=== PATIENT | female | born 1970 | race American Indian/Alaskan Native ===

== ENCOUNTER 2019-12-01 21:08 | Observation (INO) | payer MEDICAID ==
--- NOTE | 2019-12-01 21:30 | Emergency Department Report ---
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 EMS reports that daughter called due to weakness and patient was subsequently transferred to the ED patient was directed to CT scan and was evaluated by neurology (see note) and deemed not a TPA candidate Upon return for CT evaluated patient and she has slurred speech and appears drowsy. She does take oxycodone 10 mg 2 or 3 times a day for chronic pain and is currently in pain management. He has been compliant with her insulin and blood pressure medication. He states [facility] getting [facility] from the previous when she passed out. She all she remembered is compl ementing someone on being pretty then she woke up on the ground with the Washerette Machine Operator praying over her. Patient denies any preceding symptoms. He has been having intermittent headache for the last 3 weeks and was seen by her primary care doctor who increased her losartan from 50-100 and added hydrochlorothiazide 25 mg (combination medication) for better blood pressure control. For the last 3 days patient has noticed that she has been intermittently dropping things with her left hand and having some intermittent left leg weakness. Collateral information obtained from patient's older daughter who was informed by the younger daughter was actually at the scene with the patient. - Related Data Allergies/Adverse Reactions: Allergies Allergy/AdvReac Type Severity Reaction Status Date / Time No Known Allergies Allergy Verified 12/01/19 23:26 ED Review of Systems ROS: Stated complaint: STROKE Other details as noted in HPI Comment: All other systems reviewed and negative ED Neuro Physical Exam - General Suspected Stroke: Yes - NIHSS Assessment Interval: Baseline 1a. Level of Consciousness: alert/keenly responsive 1b. LOC Questions: answers both correctly 1c. LOC Commands: performs tasks correctly 2. Best Gaze: normal 3. Visual: no visual loss 4. Facial Palsy: normal symmetrical movement 5b. Motor Arm Right: no drift 5a. Motor Arm Left: no drift 6a. Motor Leg Left: no drift 6b. Motor Leg Right: no drift 7. Limb Ataxia: absent 8. Sensory: normal 9. Best Language: no aphasia 10. Dysarthria: mild/moderate dysarthria 11. Extinction/Inattention: no abnormality Total Score: 1 Stroke Severity: Minor Stroke - Other Other exam information: General: No acute distress Head: Atraumatic Eyes: normal appearance ENT: Moist mucous membranes Neck: Normal appearance, no midline tenderness Chest: Clear to auscultation bilaterally CV: Regular rate and rhythm Abdomen: Soft, normal bowel sounds, nontender, nondistended, no rebound or guarding Back: Normal inspection Extremity: Normal inspection, full range of motion Neuro: Alert O x 3, no facial asymmetry, speech clear, no gross motor deficit, left arm and leg feel "rougher" than the right. See NIH stroke scale Psych: Appropriate behavior Skin: No rash ED Course Vital Signs 12/01/19 12/01/19 12/01/19 21:10 21:40 21:46 Temperature 98.6 F Pulse Rate 94 H 101 H 98 H Respiratory 18 15 9 L Rate Blood Pressure 153/92 148/102 O2 Sat by Pulse 98 100 Oximetry 12/01/19 12/01/19 12/01/19 22:00 22:16 22:30 Temperature Pulse Rate 94 H 92 H 93 H Respiratory 19 11 L 16 Rate Blood Pressure 153/92 128/90 128/88 O2 Sat by Pulse 100 95 Oximetry 12/01/19 12/01/19 12/01/19 22:46 22:50 23:05 Temperature Pulse Rate 85 Respiratory 9 L 18 Rate Blood Pressure 137/86 128/90 O2 Sat by Pulse 98 100 98 Oximetry 12/01/19 12/01/19 23:15 23:46 Temperature Pulse Rate 93 H Respiratory 10 L 18 Rate Blood Pressure 145/91 O2 Sat by Pulse 97 Oximetry - Reevaluation(s) Reevaluation #1: 12/01/19 22:49 Patient requesting pain medicine for chronic pain. She is already slightly drowsy with mild slurring of her words and I suspect that she recently took oxycodone. Toradol ordered - Lab Data Result diagrams: 12/01/19 21:30 12/01/19 21:30 Lab Results 12/01/19 12/01/19 12/01/19 Range/Units 21:30 21:30 21:30 WBC 7.8 (4.5-11.0) K/mm3 RBC 4.90 (3.65-5.03) M/mm3 Hgb 10.9 (10.1-14.3) gm/dl Hct 36.0 (30.3-42.9) % MCV 73 L (79-97) fl MCH 22 L (28-32) pg MCHC 31 (30-34) % RDW 13.2 (13.2-15.2) % Plt Count 295 (140-440) K/mm3 Lymph % (Auto) 48.6 H (13.4-35.0) % [place] % (Auto) 6.9 (0.0-7.3) % Eos % (Auto) 3.2 (0.0-4.3) % Baso % (Auto) 1.0 (0.0-1.8) % Lymph # (Auto) 3.8 (1.2-5.4) K/mm3 [place] # (Auto) 0.5 (0.0-0.8) K/mm3 Eos # (Auto) 0.3 (0.0-0.4) K/mm3 Baso # (Auto) 0.1 (0.0-0.1) K/mm3 Seg Neutrophils % 40.3 (40.0-70.0) % Seg Neutrophils # 3.1 (1.8-7.7) K/mm3 PT 12.5 (12.2-14.9) Sec. INR 0.92 (0.87-1.13) APTT 25.0 (24.2-36.6) Sec. Thrombin Time (15.1-19.6) Sec. VBG pH (7.320-7.420) Sodium 131 L (137-145) mmol/L Potassium 4.4 (3.6-5.0) mmol/L Chloride 90.8 L (98-107) mmol/L Carbon Dioxide 29 (22-30) mmol/L Anion Gap 16 mmol/L BUN 21 H (7-17) mg/dL Creatinine 1.1 (0.6-1.2) mg/dL Estimated GFR > 60 ml/min BUN/Creatinine Ratio 19 % Glucose 423 H (65-100) mg/dL POC Glucose (70-105) Calcium 9.4 (8.4-10.2) mg/dL Magnesium (1.7-2.3) mg/dL Troponin T < 0.010 (0.00-0.029) ng/mL HCG, Qual (Negative) Salicylates (2.8-20.0) mg/dL Acetaminophen (10.0-30.0) ug/mL Plasma/Serum Alcohol (0-0.07) % 12/01/19 12/01/19 12/01/19 Range/Units 21:30 21:46 21:46 WBC (4.5-11.0) K/mm3 RBC (3.65-5.03) M/mm3 Hgb (10.1-14.3) gm/dl Hct (30.3-42.9) % MCV (79-97) fl MCH (28-32) pg MCHC (30-34) % RDW (13.2-15.2) % Plt Count (140-440) K/mm3 Lymph % (Auto) (13.4-35.0) % [place] % (Auto) (0.0-7.3) % Eos % (Auto) (0.0-4.3) % Baso % (Auto) (0.0-1.8) % Lymph # (Auto) (1.2-5.4) K/mm3 [place] # (Auto) (0.0-0.8) K/mm3 Eos # (Auto) (0.0-0.4) K/mm3 Baso # (Auto) (0.0-0.1) K/mm3 Seg Neutrophils % (40.0-70.0) % Seg Neutrophils # (1.8-7.7) K/mm3 PT (12.2-14.9) Sec. INR (0.87-1.13) APTT (24.2-36.6) Sec. Thrombin Time 15.4 (15.1-19.6) Sec. VBG pH (7.320-7.420) Sodium (137-145) mmol/L Potassium (3.6-5.0) mmol/L Chloride (98-107) mmol/L Carbon Dioxide (22-30) mmol/L Anion Gap mmol/L BUN (7-17) mg/dL Creatinine (0.6-1.2) mg/dL Estimated GFR ml/min BUN/Creatinine Ratio % Glucose (65-100) mg/dL POC Glucose (70-105) Calcium (8.4-10.2) mg/dL Magnesium 1.90 (1.7-2.3) mg/dL Troponin T (0.00-0.029) ng/mL HCG, Qual Negative (Negative) Salicylates (2.8-20.0) mg/dL Acetaminophen (10.0-30.0) ug/mL Plasma/Serum Alcohol (0-0.07) % 12/01/19 12/01/19 12/01/19 Range/Units 21:46 21:46 21:46 WBC (4.5-11.0) K/mm3 RBC (3.65-5.03) M/mm3 Hgb (10.1-14.3) gm/dl Hct (30.3-42.9) % MCV (79-97) fl MCH (28-32) pg MCHC (30-34) % RDW (13.2-15.2) % Plt Count (140-440) K/mm3 Lymph % (Auto) (13.4-35.0) % [place] % (Auto) (0.0-7.3) % Eos % (Auto) (0.0-4.3) % Baso % (Auto) (0.0-1.8) % Lymph # (Auto) (1.2-5.4) K/mm3 [place] # (Auto) (0.0-0.8) K/mm3 Eos # (Auto) (0.0-0.4) K/mm3 Baso # (Auto) (0.0-0.1) K/mm3 Seg Neutrophils % (40.0-70.0) % Seg Neutrophils # (1.8-7.7) K/mm3 PT (12.2-14.9) Sec. INR (0.87-1.13) APTT (24.2-36.6) Sec. Thrombin Time (15.1-19.6) Sec. VBG pH (7.320-7.420) Sodium (137-145) mmol/L Potassium (3.6-5.0) mmol/L Chloride (98-107) mmol/L Carbon Dioxide (22-30) mmol/L Anion Gap mmol/L BUN (7-17) mg/dL Creatinine (0.6-1.2) mg/dL Estimated GFR ml/min BUN/Creatinine Ratio % Glucose (65-100) mg/dL POC Glucose (70-105) Calcium (8.4-10.2) mg/dL Magnesium (1.7-2.3) mg/dL Troponin T (0.00-0.029) ng/mL HCG, Qual (Negative) Salicylates < 0.3 L (2.8-20.0) mg/dL Acetaminophen 5.0 L (10.0-30.0) ug/mL Plasma/Serum Alcohol < 0.01 (0-0.07) % 12/01/19 12/01/19 Range/Units 21:48 21:54 WBC (4.5-11.0) K/mm3 RBC (3.65-5.03) M/mm3 Hgb (10.1-14.3) gm/dl Hct (30.3-42.9) % MCV (79-97) fl MCH (28-32) pg MCHC (30-34) % RDW (13.2-15.2) % Plt Count (140-440) K/mm3 Lymph % (Auto) (13.4-35.0) % [place] % (Auto) (0.0-7.3) % Eos % (Auto) (0.0-4.3) % Baso % (Auto) (0.0-1.8) % Lymph # (Auto) (1.2-5.4) K/mm3 [place] # (Auto) (0.0-0.8) K/mm3 Eos # (Auto) (0.0-0.4) K/mm3 Baso # (Auto) (0.0-0.1) K/mm3 Seg Neutrophils % (40.0-70.0) % Seg Neutrophils # (1.8-7.7) K/mm3 PT (12.2-14.9) Sec. INR (0.87-1.13) APTT (24.2-36.6) Sec. Thrombin Time (15.1-19.6) Sec. VBG pH 7.340 (7.320-7.420) Sodium (137-145) mmol/L Potassium (3.6-5.0) mmol/L Chloride (98-107) mmol/L Carbon Dioxide (22-30) mmol/L Anion Gap mmol/L BUN (7-17) mg/dL Creatinine (0.6-1.2) mg/dL Estimated GFR ml/min BUN/Creatinine Ratio % Glucose (65-100) mg/dL POC Glucose 408 H (70-105) Calcium (8.4-10.2) mg/dL Magnesium (1.7-2.3) mg/dL Troponin T (0.00-0.029) ng/mL HCG, Qual (Negative) Salicylates (2.8-20.0) mg/dL Acetaminophen (10.0-30.0) ug/mL Plasma/Serum Alcohol (0-0.07) % - EKG Data -: EKG Interpreted by Me EKG shows normal: sinus rhythm, ST-T waves (no stemi) Rate: normal (90) When compared to previous EKG there are: previous EKG unavailable - Radiology Data Radiology results: report reviewed CT BRAIN: 12/01/2019 INDICATION / CLINICAL INFORMATION: neuro deficits <6hrs or sx present upon awakening. No additional information provided COMPARISON: None available. FINDINGS: BRAIN/INTRACRANIAL STRUCTURES: Unenhanced CT images of the brain demonstrate no evidence of acute intracranial abnormality. Ventricles and sulci are normal in size and shape. There is no evidence of hemorrhage or mass. There are no abnormal extra-axial fluid collections. EXTRACRANIAL STRUCTURES: Unremarkable. IMPRESSION: Negative unenhanced CT of the brain ] - Medical Decision Making 49-year-old female with intermittent left-sided weakness for last 3 days and a syncopal episode prior to arrival. CT head in ED work-up unremarkable with exception of hyperglycemia. No signs of DKA. Insulin provided. Aspirin provided. Neuro consult appreciated. Patient be admitted to the hospital for TIA/syncope work-up. Hospitalist informed for admission pt refuses toradol and demanding the narcotic meds that she takes at home, [place] perscription monitoring site reviewed below. per 11/29/2019 2 11/24/2019 OXYCODONE-ACETAMINOPHEN 10-96622.0 30 FR PROFILE SAW SETUP OPERATOR [id number] MASSEY (6011) 11/29/2019 2 11/24/2019 OXYCODONE HCL 30 MG ASRSZU36.0 30 FR PROFILE SAW SETUP OPERATOR [id number] MASSEY (6011) 11/29/2019 2 11/24/2019 PREGABALIN 150 MG WNWYMZH68.0 30 FR PROFILE SAW SETUP OPERATOR [id number] MASSEY (6011) 11/01/2019 2 11/01/2019 OXYCODONE-ACETAMINOPHEN 10-53750.0 30 FR PROFILE SAW SETUP OPERATOR [id number] MASSEY (6011) 11/01/2019 2 11/01/2019 OXYCODONE HCL 30 MG NQUYOJ29.0 30 FR PROFILE SAW SETUP OPERATOR [id number] MASSEY (6011) 11/01/2019 2 11/01/2019 PREGABALIN 150 MG THIOTRH11.0 30 FR PROFILE SAW SETUP OPERATOR [id number] MASSEY (6011) pt stated she will leave if she does not get her pain med. I ordered percocet . Critical Care Time: No Critical care attestation.: If time is entered above; I have spent that time in minutes in the direct care of this critically ill patient, excluding procedure time. ED Disposition Clinical Impression: TIA (transient ischemic attack), Syncope, Hyperglycemia due to diabetes mellitus, Chronic pain Disposition: OP ADMIT IP TO THIS HOSP Is pt being admited?: Yes Condition: Stable
--- NOTE | 2019-12-01 21:33 | Emergency Department Report ---
HPI - General Time Seen by Provider: 12/01/19 21:12 - HPI HPI: [facility] Date of Service: 12/01/2019 20:58:26 Impression: Rule Out Acute Ischemic Stroke Comments/Sign-Out: Patients clinical features can be compatible with diagnosis of acute ischemic stroke however other vascular and non-vascular conditions that present with an acute neurological deficit simulating acute ischemic stroke is possible. Pt scored 1 on NIHSS because she felt the rt side was "rougher" compared to the left. This she noted a week prior. Chief differential include: toxic-metabolic disturbances( hyperglycemia) Mechanism of Stroke: Not Clear Metrics: Last Known Well: 12/01/2019 20:15:28 [facility] Notification Time: 12/01/2019 20:58:14 Arrival Time: 12/01/2019 21:09:28 Stamp Time: 12/01/2019 20:58:26 Time First Login Attempt: 12/01/2019 20:59:28 Video Start Time: 12/01/2019 20:59:28 Symptoms: left sided facial droop and left arm weakness, transient resolved NIHSS Start Assessment Time: 12/01/2019 21:25:44 Patient is not a candidate for Alteplase/Activase. Patient was not deemed candidate for Alteplase/Activase thrombolytics because of Resolved symptoms (no residual disabling symptoms). Video End Time: 12/01/2019 21:26:31 CT head showed no acute hemorrhage or acute core infarct. Clinical Presentation is not Suggestive of Large Vessel Occlusive Disease Radiologist was not called back for review of advanced imaging because NA ED Physician notified of diagnostic impression and management plan on 12/01/2019 21:29:44 Our recommendations are outlined below. Recommendations: Activate Stroke Protocol Admission/Order Set Stroke/Telemetry Floor Neuro Checks Bedside Swallow Eval DVT Prophylaxis IV Fluids, Normal Saline Head of Bed 30 Degrees Euglycemia and Avoid Hyperthermia (PRN Acetaminophen) Antiplatelet Therapy Recommended Routine Consultation with Inhouse Neurology for Follow up Care Sign Out: Discussed with Emergency Department Provider History of Present Illness: Patient is a 49 year old Female. Patient was brought by EMS for symptoms of left sided facial droop and left arm weakness, transient resolved Patient seen in ED Pt in transit at the time of initial login Information obtained from patient and nursing staff h/o DM, HTN, h/o TIAs, gastric bypass surgery Chronology: LKW 8:15 pm slurred her speech and was unable to walk On initial assement by EMS they noted left sided facial droop and left arm weakness At time of arrival on inital assesment by ED nurse no deficts were found At the time of interview, pt did not have any focal weakness Medications: insulin, losartan, oxycodone, lyrica BP:154/101 P: 101 Blood glucose:530 Last seen normal was within 4.5 hours. There is no history of hemorrhagic complications or intracranial hemorrhage. There is no history of Recent Anticoagulants. There is no history of recent major surgery. There is no history of recent stroke. Past Medical History: Diabetes Mellitus Examination: BP(154/101), Pulse(101), Blood Glucose(530) 1A: Level of Consciousness - Alert; keenly responsive + 0 1B: Ask Month and Age - Both Questions Right + 0 1C: Blink Eyes & Squeeze Hands - Performs Both Tasks + 0 2: Test Horizontal Extraocular Movements - Normal + 0 3: Test Visual Conteh - No Visual Loss + 0 4: Test Facial Palsy (Use Grimace if Obtunded) - Normal symmetry + 0 5A: Test Left Arm Motor Drift - No Drift for 10 Seconds + 0 5B: Test Right Arm Motor Drift - No Drift for 10 Seconds + 0 6A: Test Left Leg Motor Drift - No Drift for 5 Seconds + 0 6B: Test Right Leg Motor Drift - No Drift for 5 Seconds + 0 7: Test Limb Ataxia (FNF/Heel-Ruiz) - No Ataxia + 0 8: Test Sensation - Mild-Moderate Loss: Less Sharp/More Dull + 1 9: Test Language/Aphasia - Normal; No aphasia + 0 10: Test Dysarthria - Normal + 0 11: Test Extinction/Inattention - No abnormality + 0 NIHSS Score: 1 Patient/Family was informed the Neurology Consult would happen via TeleHealth consult by way of interactive audio and video telecommunications and consented to receiving care in this manner. Due to the immediate potential for life-threatening deterioration due to underlying acute neurologic illness, I spent 35 minutes providing critical care. This time includes time for face to face visit via telemedicine, review of medical records, imaging studies and discussion of findings with providers, the patient and/or family. Dr Arpita Comer [facility] Case [id number] ED Review of Systems ROS: Stated complaint: STROKE Other details as noted in HPI Critical care attestation.: If time is entered above; I have spent that time in minutes in the direct care of this critically ill patient, excluding procedure time. ED Disposition Clinical Impression: TIA (transient ischemic attack) Disposition: [id number] OP ADMIT IP TO THIS HOSP Is pt being admited?: Yes Condition: Stable
[2019-12-01 21:40] LABS: Basophils # (Auto) 0.1 K/mm3 (0.0-0.1); Eosinophils # (Auto) 0.3 K/mm3 (0.0-0.4); Eosinophils % (Auto) 3.2 % (0.0-4.3); Lymphocytes # (Auto) 3.8 K/mm3 (1.2-5.4); Lymphocytes % (Auto) 48.6 % (13.4-35.0); Mean Corpuscular HGB Conc 31 % (30-34); Mean Corpuscular Volume 73 fl (79-97); Monocytes # (Auto) 0.5 K/mm3 (0.0-0.8); Monocytes % (Auto) 6.9 % (0.0-7.3); Platelet Count 295 K/mm3 (140-440); Red Cell Distribution Width 13.2 % (13.2-15.2)
[2019-12-01 21:41] LABS: Hemoglobin 10.9 gm/dl (10.1-14.3)
--- NOTE | 2019-12-01 21:46 | Cat Scan Report ---
CT BRAIN: 12/01/2019 INDICATION / CLINICAL INFORMATION: neuro deficits <6hrs or sx present upon awakening. No additional information provided COMPARISON: None available. FINDINGS: BRAIN/INTRACRANIAL STRUCTURES: Unenhanced CT images of the brain demonstrate no evidence of acute int racranial abnormality. Ventricles and sulci are normal in size and shape. There is no evidence of hemorrhage or mass. There are no abnormal extra-axial fluid collections. EXTRACRANIAL STRUCTURES: Unremarkable. IMPRESSION: Negative unenhanced CT of the brain ]\ notification: Emergency department Dr Randall. at [address] scans at this location are performed using dose reduction to ALARA by means of automated expos ure control. Signer Name: Don Tim MD Signed: 12/01/2019 9:41 PM Workstation Name: [id number]
[2019-12-01 21:54] LABS: BUN/Creatinine Ratio 19; Blood Urea Nitrogen 21 mg/dL (7-17); Calcium 9.4 mg/dL (8.4-10.2); Hemolysis Index 10
[2019-12-01 21:59] LABS: INR 0.92 (0.87-1.13)
[2019-12-01] MEDS ORDERED: INSULIN REGULAR, HUMAN 100 UNIT/ML 3ML VIAL IV ONE (22:34)
[2019-12-01] MEDS ORDERED: ASPIRIN 325 MG TAB PO ONE (22:38)
[2019-12-01] MEDS ORDERED: KETOROLAC 30 MG/1 ML INJ IV ONE (22:48)
[2019-12-01] MEDS ORDERED: INSULIN REGULAR, HUMAN 100 UNITS/1 ML ONE (23:00)
[2019-12-01] MEDS ORDERED: METOCLOPRAMIDE 10 MG TAB PO PRN (23:15)
[2019-12-01] MEDS ORDERED: DEXTROSE 50% IN WATER (25GM) 50 ML SYRINGE IV PRN (23:15)
[2019-12-01] MEDS ORDERED: MAGNESIUM HYDROXIDE (MOM) ORAL LIQD UDC PO PRN ×2 (23:15)
[2019-12-01] MEDS ORDERED: ONDANSETRON 4 MG/2 ML INJ IV PRN ×2 (23:15)
[2019-12-01] MEDS ORDERED: ACETAMINOPHEN 325 MG TAB PO PRN ×2 (23:15)
[2019-12-01] MEDS ORDERED: PROMETHAZINE 25 MG RECT SUPP PR PRN (23:15)
[2019-12-01 23:17] VITALS: BP 145/91
[2019-12-01] MEDS ORDERED: oxyCODONE /ACETAMINOPHEN 5-325MG TAB PO ONE (23:20)
--- NOTE | 2019-12-01 23:26 | History and Physical Report ---
History of Present Illness Date of examination: 12/01/19 Date of admission: 12/01/2019 Chief complaint: Syncope Left sided Weakness History of present illness: 49-year-old -[place] female with known history of diabetes mellitus, hypertension and chronic pain reporting to the emergency room today for left- sided weakness. EMS was said to have been called by daughter because patient was having left sided weakness. Upon arrival in the emergency room she was immediately sent for CT scan. However upon return from CT scan she was said to feel drowsy and had slurred speech. Patient takes oxycodone 10 mg 2-3 times a day for chronic pain. Patient was said to be at a function earlier today when she suddenly had a syncopal episode. She cannot recall any preceding symptoms however she indicates she has been having headache for about 3 weeks during which a primary care physician adjusted her blood pressure medications for optimal blood pressure control. Patient also indicates that she has been dropping objects from her left hand and having intermittent left lower extremity weakness. Patient was evaluated by tele-neurologist and found not to be a TPA candidate. CT scan of the head was within normal limits. Further work-up reveals hyperglycemia. Past History Past Medical History: diabetes, hypertension Past Surgical History: No surgical history Social history: no significant social history Family history: no significant family history Medications and Allergies Allergies Allergy/AdvReac Type Severity Reaction Status Date / Time No Known Allergies Allergy Verified 12/01/19 23:26 Active Meds: Active Medications Acetaminophen (Tylenol) 650 mg PO Q4H PRN PRN Reason: Pain, Mild (1-3) Acetaminophen (Tylenol) 650 mg PO Q4H PRN PRN Reason: Pain MILD(1-3)/Fever >100.5/RIZZO Atorvastatin Calcium (Lipitor) 40 mg PO QHS ELSIE Bisacodyl (Dulcolax) 10 mg HI QDAY PRN PRN Reason: Constipation Dextrose (D50w (25gm) Syringe) 50 ml IV Q30MIN PRN; Protocol PRN Reason: Hypoglycemia Enoxaparin Sodium (Enoxaparin) 40 mg SUB-Q QDAY@2200 ELSIE; Protocol Insulin Human Lispro (Humalog) 0 unit SUB-Q ACHS ELSIE; Protocol Magnesium Hydroxide (Milk Of Magnesia) 30 ml PO Q4H PRN PRN Reason: Constipation Magnesium Hydroxide (Milk Of Magnesia) 30 ml PO Q4H PRN PRN Reason: Constipation Metoclopramide HCl (Reglan) 10 mg PO Q6H PRN PRN Reason: Nausea And Vomiting Ondansetron HCl (Zofran) 4 mg IV Q8H PRN PRN Reason: Nausea And Vomiting Ondansetron HCl (Zofran) 4 mg IV Q8H PRN PRN Reason: Nausea And Vomiting Promethazine HCl (Phenergan) 25 mg HI Q6H PRN PRN Reason: Nausea And Vomiting Sodium Chloride (Sodium Chloride Flush Syringe 10 Ml) 10 ml INJ PRN PRN PRN Reason: LINE FLUSH Sodium Chloride (Sodium Chloride Flush Syringe 10 Ml) 10 ml IV BID ELSIE Sodium Chloride (Sodium Chloride Flush Syringe 10 Ml) 10 ml IV PRN PRN PRN Reason: LINE FLUSH Review of Systems Constitutional: no fever, no chills Ears, nose, mouth and throat: no nasal congestion, no sore throat Cardiovascular: no chest pain, no palpitations Respiratory: no cough, no shortness of breath Gastrointestinal: no abdominal pain, no nausea, no vomiting, no diarrhea Genitourinary Female: no flank pain, no dysuria, no urinary frequency, no urgency, no hematuria Musculoskeletal: low back pain, no neck pain Integumentary: no rash, no pruritis Neurological: syncope, headaches, change in speech, no confusion Psychiatric: no anxiety, no depression Exam - Constitutional Vitals: Temp Pulse Resp BP Pulse Ox 98.6 F 93 H 10 L 145/91 97 12/01/19 21:10 12/01/19 23:15 12/01/19 23:15 12/01/19 23:15 12/01/19 23:15 General appearance: Present: no acute distress, well-nourished - EENT Eyes: Present: PERRL, EOM intact. Absent: scleral icterus ENT: hearing intact, clear oral mucosa, dentition normal - Neck Neck: Present: supple, normal ROM - Respiratory Respiratory effort: normal Respiratory: bilateral: CTA - Cardiovascular Rhythm: regular Heart Sounds: Present: S1 & S2. Absent: gallop, systolic murmur, diastolic murmur, rub - Extremities Extremities: no ischemia, pulses intact, pulses symmetrical, No edema, Full ROM Peripheral Pulses: within normal limits - Abdominal General gastrointestinal: Present: soft, non-tender, non-distended, normal bowel sounds. Absent: mass - Integumentary Integumentary: Present: clear, warm, dry - Musculoskeletal Musculoskeletal: strength equal bilaterally - Psychiatric Psychiatric: appropriate mood/affect, intact judgment & insight, memory intact, cooperative - Neurologic Neurologic: CNII-XII intact, no focal deficits, moves all extremities HEART Score - HEART Score Troponin: Troponin T < 0.010 ng/mL (0.00-0.029) 12/01/19 21:30 Results - Labs CBC & Chem 7: 12/01/19 21:30 12/01/19 21:30 Labs: Abnormal lab results 12/01/19 12/01/19 12/01/19 Range/Units 21:30 21:30 21:46 MCV 73 L (79-97) fl MCH 22 L (28-32) pg Lymph % (Auto) 48.6 H (13.4-35.0) % Sodium 131 L (137-145) mmol/L Chloride 90.8 L (98-107) mmol/L BUN 21 H (7-17) mg/dL Glucose 423 H (65-100) mg/dL POC Glucose (70-105) Salicylates < 0.3 L (2.8-20.0) mg/dL Acetaminophen (10.0-30.0) ug/mL 12/01/19 12/01/19 Range/Units 21:46 21:54 MCV (79-97) fl MCH (28-32) pg Lymph % (Auto) (13.4-35.0) % Sodium (137-145) mmol/L Chloride (98-107) mmol/L BUN (7-17) mg/dL Glucose (65-100) mg/dL POC Glucose 408 H (70-105) Salicylates (2.8-20.0) mg/dL Acetaminophen 5.0 L (10.0-30.0) ug/mL Assessment and Plan - Patient Problems (1) TIA (transient ischemic attack) Status: Acute Plan to address problem: Patient placed on aspirin. We will schedule for carotid Doppler and MRI of the brain. We will request neurology evaluation. (2) Chronic pain Status: Acute Plan to address problem: Patient takes oxycodone for chronic pain (3) Hyperglycemia due to diabetes mellitus Status: Acute Plan to address problem: We will monitor Accu-Cheks (4) Syncope Status: Acute Plan to address problem: We will schedule patient for echocardiogram and carotid Doppler. (5) DVT prophylaxis Status: Acute Plan to address problem: Patient placed on subcutaneous heparin. (6) Full code status Status: Acute
[2019-12-01 23:30] LABS: Bilirubin,Urine NEG (Negative); Blood,Urine NEG (Negative); Color,Urine Straw (Yellow); Protein,Urine <15 mg/dL mg/dL (Negative); RBC,Urine < 1.0 /HPF (0.0-6.0); Urobilinogen,Urine < 2.0 mg/dL (<2.0); WBC,Urine < 1.0 /HPF (0.0-6.0)
[2019-12-01 23:37] LABS: Amphetamine Screen,Urine PRESUMPTIVE NEGATIVE; Benzodiazepines Screen,Urine PRESUMPTIVE NEGATIVE; Cannabinoid Screen,Urine PRESUMPTIVE NEGATIVE; Cocaine Screen,Urine PRESUMPTIVE NEGATIVE; Methadone Screen,Urine PRESUMPTIVE NEGATIVE; Opiate Screen,Urine PRESUMPTIVE NEGATIVE
[2019-12-01] MEDS ORDERED: oxyCODONE /ACETAMINOPHEN 5-325MG TAB ONE (23:43)
--- NOTE | 2019-12-02 00:56 | Event Note ---
Date: 12/02/19 Called by Nurse on the medical floor that patient who was just admitted signed out AMA.
[2019-12-02] MEDS ORDERED: INSULIN LISPRO 100 UNIT/ML VIAL 3 mL SUB-Q SCH (07:30)
[2019-12-02] MEDS ORDERED: ENOXAPARIN 40 MG/0.4 ML INJ SUB-Q SCH (22:00)
== END 2019-12-02 00:40 | disposition left against medical advice (07) ==
LOC: ED 21:08 → 4A 22:58
PROVIDERS: ADMIT Internal Medicine Geriatric Medicine; ATTEND Internal Medicine Geriatric Medicine
DX: G45.9 Transient cerebral ischemic attack, unspecified (principal); E11.65 Type 2 diabetes mellitus with hyperglycemia; G89.29 Other chronic pain; R55 Syncope and collapse; I10 Essential (primary) hypertension; Z79.4 Long term (current) use of insulin; Z79.899 Other long term (current) drug therapy
CPT/HCPCS: 36415; 70450; 80048; 80307; 81001; 82805; 82962; 83735; 84484; 84703; 85025; 85610; 85670; 85730; 93005; 96374; 99291; G0378; 80320; G0480; J1815; J1885